=== PATIENT | female | born 1940 | race Caucasian/White ===

== ENCOUNTER 2019-08-06 11:36 | Outpatient (CLI) | payer OTHER, MEDICARE, SELFPAY ==
--- NOTE | ~2019-08-06 | XR_ITS ---
EXAMINATION: XR fluoroscopy <1hr DATE: 08/06/2019 12:09 INDICATION: Acute cholecystitis. TECHNIQUE: I removed the percutaneous cholecystostomy tube under fluoroscopic guidance. Fluoroscopy e xposure time was 0.1 minutes. The total number of images was 1. COMPARISON: Cholangiogram 07/25/2019 FINDINGS: There is a cholecystostomy tube in expected position. IMPRESSION: 1. Cholecystostomy tube removal. Reviewed, dictated and finalized at location A. [employer]ER
== END 2019-08-06 11:37 | disposition home or self-care (01) ==
LOC: ANHIMG 11:39
PROVIDERS: PCP Emergency Medicine; Visit Provider Surgery
DX: K81.0 Acute cholecystitis (principal); Z45.89 Encounter for adjustment and management of other implanted devices
CPT/HCPCS: 76000